=== PATIENT | female | born 1950 ===

== ENCOUNTER 2025-03-01 08:50 | Day surgery (SDC) | payer MEDICARE ==
[2025-03-01] VITALS (17 sets, daily range): BP systolic 80–130; BP diastolic 45–80
[~2025-03-01] VITALS: Ht 154.9 cm; Wt 58.5 kg
[~2025-03-01 08:50] MED LIST: ALENDRONATE SOD70 MG PO; ATOR20; Lactated Ringer's 1,000 ML IV SCH
[2025-03-01] MEDS ORDERED: propofoL 20 ML IV ONE (10:42)
--- NOTE | 2025-03-01 10:45 | NUR ---
03/01/25 1045 Blanka Garcia CONFIRMED AND REVIEWED H&P, MEDCICATIONS, ALLERGIES, MEDICAL HISTORY, RESPIRATORY HISTORY, VITAL SIGNS, 3-LEAD EKG, CONSENTS, AND PHYSICIAN ORDERS. PATIENT CONFIRMS NPO STATUS AND AGREES WITH SCHEDULED PROCEDURE. MONITOR INTACT WITH CONTINUOUS PULSE OXIMETRY, CAPNOGRAPHY, 3-LEAD EKG, INTERMITTENT BP. SUPPLEMENTAL O2 TO BE TITRATED THROUGHOUT PROCEDURE TO MAINTAIN O2 SATURATION ABOVE 90%. PATIENT DETERMINED TO BE ASA APPROPRIATE FOR PROPOFOL SEDATION PRIOR TO START OF PROCEDURE BY DR. OHARA. MALLAMPATI CLASS 2 AIRWAY: COMPLETE VISUALIZATION OF THE [facility].
[2025-03-01] MEDS ORDERED: Midazolam HCl 1MG / ML 2ML Vial ONE (10:52)
[2025-03-01] MEDS ORDERED: Midazolam HCl 1MG / ML 2ML Vial IV SCH (10:55)
--- NOTE | 2025-03-01 11:37 | NUR ---
Patient up to Ambulate independently. Gait steady. Discharge instructions reviewed with patient. Patient verbalizes understanding. Copy given to patient to take home, [facility]. Patient States Post-Procedure ride home has been arranged. Discharged via wheelchair to private car for ride home. PT TOLERATING PO, REPORTS READY TO GO. PER DR LEV MORA/5 YEARS.
== END 2025-03-01 11:37 | disposition home or self-care (01) ==
LOC: ORSCMMR 08:50 → ORD 10:00 → ORSCMMR 11:37
PROVIDERS: Internal Medicine Gastroenterology
PROC: 0DBK8ZX Excision of Ascending Colon, Via Natural or Artificial Opening Endoscopic, Diagnostic (ICD-10-PCS; principal; 2025-03-01 10:00)
PROC: 0DBH8ZX Excision of Cecum, Via Natural or Artificial Opening Endoscopic, Diagnostic (ICD-10-PCS; principal; 2025-03-01 10:00)
DX: Z12.11 Encounter for screening for malignant neoplasm of colon (principal); K63.5 Polyp of colon; D12.4 Benign neoplasm of descending colon; Z86.0100 Personal history of colon polyps, unspecified; E78.00 Pure hypercholesterolemia, unspecified; M81.0 Age-related osteoporosis without current pathological fracture; Z79.899 Other long term (current) drug therapy
CPT/HCPCS: 88305; J2250; J2704; J7120